=== PATIENT | male | born 2000 | race Caucasian/White ===

== ENCOUNTER 2019-09-18 14:26 | Outpatient (CLI) | payer MEDICAID ==
--- NOTE | 2019-09-18 16:12 | XRAY Report ---
Reason: CHEST TIGHTNESS Procedure Date: 09/18/2019 Accession Number: [id number] / [id number] Procedure: XRN - Chest 2 View X-Ray CPT Code: 82279 Final Report FULL RESULT: EXAM: CHEST RADIOGRAPHY EXAM DATE: 09/18/2019 02:58 PM. CLINICAL HISTORY: Chest tightness. COMPARISON: None. TECHNIQUE: 2 views. FINDINGS: Lungs/Pleura: No focal opacities evident. No pleural effusion. No pneumothorax. Normal volumes. Mediastinum: Heart and mediastinal contours are unremarkable. Other: None. IMPRESSION: Normal 2-view chest radiography. [facility]
== END 2019-09-18 14:27 | disposition home or self-care (01) ==
LOC: DI.N 14:26
PROVIDERS: ATTEND Physician Assistant
DX: R07.89 Other chest pain (principal)
CPT/HCPCS: 71046

== ENCOUNTER 2019-09-20 09:11 | Outpatient (CLI) | payer MEDICAID | END 2019-09-20 09:12 | disposition home or self-care (01) | LOC: RT 09:11 | PROVIDERS: ATTEND Physician Assistant | DX: R07.89 Other chest pain (principal) | CPT/HCPCS: 94010 ==

== ENCOUNTER 2020-04-02 19:15 | Outpatient (CLI) | payer MEDICAID, OTHER | END 2020-04-02 19:16 | disposition critical access hospital (66) | LOC: EMS 19:15 | PROVIDERS: ATTEND Surgery | DX: S01.81XA Laceration without foreign body of other part of head, initial encounter (principal); V23.4XXA Motorcycle driver injured in collision with car, pick-up truck or van in traffic accident, initial encounter; Y92.414 Local residential or business street as the place of occurrence of the external cause | CPT/HCPCS: A0425; A0429 ==

== ENCOUNTER 2020-04-02 19:35 | Emergency (ER) | payer OTHER, MEDICAID ==
[2020-04-02] MEDS ORDERED: BUFFERED LIDOCAINE 10 ML SYRINGE SUBQ STA (20:45)
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
[2020-04-02 22:42] VITALS: BP 120/72
== END 2020-04-02 22:40 | disposition home or self-care (01) ==
LOC: EDUNIT# → ED 19:35
DX: S01.112A Laceration without foreign body of left eyelid and periocular area, initial encounter (principal); V23.4XXA Motorcycle driver injured in collision with car, pick-up truck or van in traffic accident, initial encounter; Y93.I9 Activity, other involving external motion; Y92.410 Unspecified street and highway as the place of occurrence of the external cause
CPT/HCPCS: 12011; 99282; 99283

== ENCOUNTER 2020-04-07 11:21 | Emergency (ER) | payer MEDICAID, OTHER ==
[2020-04-07 11:32] VITALS: BP 135/74
--- NOTE | 2020-04-07 12:56 | ED Physician Documentation ---
PD HPI WOUND RECHECK - Stated complaint Stated Complaint: STITCHES REMOVAL - Chief complaint Chief Complaint: Wound - Histroy obtained from History obtained from: Patient - History of Present Illness Location: Face (left eyebrow) Timing - onset: How many days ago (5) Associated symptoms: Swelling (some bruising in periorbital area slowly resolving.). No: Fever, Redness Recently seen: Emergency Dept (5 days ago) Review of Systems Constitutional: denies: Fever Eyes: denies: Decreased vision, Photophobia Neurologic: denies: Altered mental status, Headache PD PAST MEDICAL HISTORY - Past Surgical History Past Surgical History: No - Allergies Allergies/Adverse Reactions: Allergies Allergy/AdvReac Type Severity Reaction Status Date / Time No Known Drug Allergies Allergy Verified 04/07/20 11:30 - Social History Does the pt smoke?: No Smoking Status: Never smoker Does the pt drink ETOH?: No Does the pt have substance abuse?: No - Immunizations Immunizations are current?: Yes - POLST Patient has POLST: No PD ED PE NORMAL - Vitals Vital signs reviewed: Yes - General General: Alert and oriented X 3, No acute distress, Well developed/nourished - HEENT HEENT: PERRL, EOMI, Other (The left periorbital area with some mild bruising and swelling of the eyelid and the infraorbital area. There is healing laceration in the left lateral eyebrow area with sutures intact and no signs of infection.) - Derm Derm: Normal color, Warm and dry Results - Vitals Vitals: Vital Signs - 24 hr 04/07/20 11:30 Temperature 36.7 C Heart Rate 82 Respiratory 15 Rate Blood Pressure 135/74 H O2 Saturation 98 Oxygen O2 Source Room air Departure - Departure Disposition: 01 Home, Self Care Clinical Impression: Visit for suture removal Condition: Stable Record reviewed to determine appropriate education?: Yes Instructions: ED Wound Check Sutr Remove No Infec Follow-Up: Carol Sanabria PA [Primary Care Provider] - Comments: Continue wound care with cleaning gently once or twice a day and a little bit of ointment until fully healed. It does look good at this time without any signs of infection. The bruising and swelling should continue to resolve.
== END 2020-04-07 13:05 | disposition home or self-care (01) ==
LOC: ED 11:21
DX: S01.112D Laceration without foreign body of left eyelid and periocular area, subsequent encounter (principal); X58.XXXD Exposure to other specified factors, subsequent encounter
CPT/HCPCS: 99281

== ENCOUNTER 2021-01-28 00:02 | Emergency (ER) | payer MEDICAID ==
--- NOTE | 2021-01-28 00:49 | ED Physician Documentation ---
History of Present Illness - Stated complaint Stated Complaint: BLOODY STOOL - Chief complaint Chief Complaint: Abd Pain - History obtained from History obtained from: Patient - Additonal information Additional information: 20-year-old man, previously healthy, without family history of IBD or autoimmune disorder presents with bright light blood per rectum intermittent over the past week and a half. Patient endorses diarrhea during this time period as well. Denies constipation or prior GI issues. Patient has been feeling cramped and bloated but denies nausea, vomiting, fevers or chills. Denies urinary symptoms. Review of Systems Ten Systems: 10 systems reviewed and negative Constitutional: denies: Fever, Chills GI: reports: Diarrhea, Bloody / black stool. denies: Abdominal Pain, Nausea, Vomiting PD PAST MEDICAL HISTORY - Past Medical History Past Medical History: Yes GI: GERD, Other Other Past Medical History: Possible IBS 2017 - Past Surgical History Past Surgical History: No - Present Medications Home Medications: Ambulatory Orders Medication Instructions Recorded Confirmed No Known Home Medications 01/28/21 01/28/21 - Allergies Allergies/Adverse Reactions: Allergies Allergy/AdvReac Type Severity Reaction Status Date / Time No Known Drug Allergies Allergy Verified 01/28/21 00:14 - Social History Does the pt smoke?: No Smoking Status: Never smoker Does the pt drink ETOH?: No Does the pt have substance abuse?: No - Immunizations Immunizations are current?: Yes - POLST Patient has POLST: No PD ED PE NORMAL - Vitals Vital signs reviewed: Yes - General General: Alert and oriented X 3, No acute distress, Well developed/nourished - HEENT HEENT: Atraumatic, PERRL, EOMI - Neck Neck: Supple, no meningeal sign - Cardiac Cardiac: RRR - Respiratory Respiratory: No respiratory distress, Clear bilaterally - Abdomen Abdomen: Soft, Non tender, Non distended - Male Male : Deferred - Rectal Rectal: Other (No hemorrhoids. Normal prostate. small amount of Bright red blood in the rectal vault. Confirmed with fecal occult blood test.) - Derm Derm: Normal color - Extremities Extremities: No deformity - Neuro Neuro: Alert and oriented X 3 - Psych Psych: Normal mood, Other (Slightly anxious affect) Results - Vitals Vitals: Vital Signs - 24 hr 01/28/21 01/28/21 00:11 01:12 Temperature 37.1 C Heart Rate 102 H Respiratory 18 Rate Blood Pressure 139/99 H 138/85 H O2 Saturation 100 Oxygen O2 Source Room air - Labs Labs: Microbiology 01/28/21 00:36 Occult Blood - Final Stool PD MEDICAL DECISION MAKING - ED course ED course: 20-year-old man, previously healthy without family history of autoimmune disorder or IBD presents with 1-1/2 weeks of intermittent diarrhea with bright red blood per rectum increasing in frequency. Patient otherwise asymptomatic and denies dizziness, shortness of breath, fevers, nausea vomiting abdominal pain or constipation. He consented to a rectal exam which was positive for feliciano blood. He was uncomfortable with the idea of getting blood work drawn s felipe he has no overt signs of anemia I am going to allow him to follow-up outpatient with a server support technician. Strict return precautions given. Departure - Departure Disposition: 01 Home, Self Care Clinical Impression: Rectal bleeding Condition: Good Instructions: ED Hematochezia Stable Comments: You were seen in the emergency department for rectal bleeding. Upon clinical exam, it does not appear that you have signs of life-threatening bleeding. You have a normal physical exam except for the blood in your bottom. Since you declined bloodwork today, you can follow-up with a server support technician in [place] for bloodwork and colonoscopy. Return to the emergency department if you develop worsening symptoms, new symptoms or other concerns. [facility] gastroenterology. [address] [facility] [phone]. Discharge Date/Time: 01/28/21 01:35
[2021-01-28 01:13] VITALS: BP 138/85
== END 2021-01-28 01:35 | disposition home or self-care (01) ==
LOC: ED 00:02
DX: K62.5 Hemorrhage of anus and rectum (principal)
CPT/HCPCS: 82270; 82274; 99282; 99283

== ENCOUNTER 2021-06-11 17:23 | Outpatient (CLI) | payer MEDICAID ==
--- NOTE | 2021-06-12 12:51 | XRAY Report ---
PROCEDURE: Abdomen 2 View X-Ray INDICATIONS: CHRONIC CONSTIPATION, BLOOD IN STOOL TECHNIQUE: 1 view of the abdomen were acquired. COMPARISON: None. FINDINGS: Surgical changes and devices: None. Bowel: No pneumoperitoneum. The bowel gas pattern is normal. Soft tissues: No masses; visualized solid organ contours appear normal in size. No suspicious abdom inal calcifications. Bones: No suspicious bony abnormalities. IMPRESSION: Normal bowel gas pattern, no free air seen. Mild colonic obstipation at the sigmoid colo n area. This also is mild at the right colon. Reviewed by: Eric Sewell MD on 06/12/2021 12:50 PM PDT Approved by: Eric Sewell MD on 06/12/2021 12:50 PM PDT Station ID: [id number]
== END 2021-06-11 17:24 | disposition home or self-care (01) ==
LOC: DI.N 17:23
PROVIDERS: ATTEND Family Medicine
DX: K59.09 Other constipation (principal); K92.1 Melena

== ENCOUNTER 2022-01-12 11:26 | Outpatient (CLI) | payer MEDICAID ==
--- NOTE | 2022-01-12 15:41 | XRAY Report ---
PROCEDURE: Lumbar Spine 2 View INDICATIONS: THORACIC BACK PX TECHNIQUE: 2 views of the lumbar spine were acquired. COMPARISON: None. FINDINGS: Bones: 2 [id number] vertebrae are present. There is normal bony alignment. No vertebral body compression fractures. No suspicious bony lesions. Soft tissues: Overlying bowel gas pattern is normal. No suspicious soft tissue calcifications. IMPRESSION: No lumbar spine compression fracture or spondylolisthesis. Reviewed by: Momo Ansari MD on 01/12/2022 3:40 PM PST Approved by: Momo Ansari MD on 01/12/2022 3:40 PM PST Station ID: [id number]
--- NOTE | 2022-01-12 15:42 | XRAY Report ---
PROCEDURE: Thoracic Spine 2 View INDICATIONS: THORACIC BACK PX TECHNIQUE: 3 views of the thoracic spine were acquired. COMPARISON: None. FINDINGS: Bones: No fractures or dislocations. No suspicious bony lesions. 12 pairs of ribs are noted, and a ppear intact where visualized. Soft tissues: No paravertebral stripe thickening. IMPRESSION: No fracture or dislocation in thoracic spine. No finding to explain patient's symptoms. Reviewed by: Momo Ansari MD on 01/12/2022 3:40 PM PST Approved by: Momo Ansari MD on 01/12/2022 3:40 PM PST Station ID: [id number]
== END 2022-01-12 11:27 | disposition home or self-care (01) ==
LOC: DI.N 11:26
PROVIDERS: ATTEND Nurse Practitioner
DX: M54.6 Pain in thoracic spine (principal)

== ENCOUNTER 2022-12-23 17:21 | Outpatient (CLI) | payer MEDICAID ==
[2022-12-23 20:29] LABS: BASOPHILS # (AUTO) 0.1 10^3/uL (0.0-0.1); BASOPHILS % (AUTO) 0.8 %; EOSINOPHILS # (AUTO) 0.4 10^3/uL (0.0-0.7); EOSINOPHILS % (AUTO) 5.7 %; HCT - HEMATOCRIT 32.8 % (42.0-52.0); LYMPHOCYTES # (AUTO) 1.8 10^3/uL (1.5-3.5); LYMPHOCYTES % (AUTO) 23.6 %; MEAN CORPUSCULAR HEMOGLOBIN 19.7 pg (27.0-31.0); MEAN CORPUSCULAR HGB CONC 27.4 g/dL (32.0-36.0); MEAN CORPUSCULAR VOLUME 71.9 fL (80.0-94.0); MEAN PLATELET VOLUME 10.2 fL (7.4-11.4); MONOCYTES # (AUTO) 0.6 10^3/uL (0.0-1.0); MONOCYTES % (AUTO) 7.7 %; NEUTROPHILS # (AUTO) 4.7 10^3/uL (1.5-6.6); NEUTROPHILS % (AUTO) 61.9 %; PLT - PLATELET COUNT 404 10^3/uL (130-450); RED BLOOD COUNT 4.56 10^6/uL (4.70-6.10); WHITE BLOOD COUNT 7.6 x10^3/uL (4.8-10.8)
[2022-12-23 20:52] LABS: % IRON SATURATION 3 % (20-50); ALBUMIN 4.2 g/dL (3.2-5.5); ALKALINE PHOSPHATASE 119 IU/L (42-121); ALT ALANINE AMINOTRANSFERASE 12 IU/L (10-60); AST ASPARTATE AMINOTRANSFERASE 19 IU/L (10-42); BILIRUBIN,TOTAL 0.5 mg/dL (0.2-1.0); BUN - BLOOD UREA NITROGEN 15 mg/dL (6-20); CARBON DIOXIDE - CO2 26 mmol/L (21-32); CHLORIDE 100 mmol/L (101-111); CREATININE 0.9 mg/dL (0.6-1.2); GFR - MDRD 104 (>89); GLUCOSE 117 mg/dL (70-100); IRON 16 ug/dL (45-182); POTASSIUM 3.9 mmol/L (3.5-5.0); SODIUM 139 mmol/L (135-145); TOTAL IRON BINDING CAPACITY 538 ug/dL (250-450); TOTAL PROTEIN 8.3 g/dL (6.7-8.2); TRANSFERRIN 384 mg/dL (180-329)
[2022-12-23 20:53] LABS: CRP - C-REACTIVE PROTEIN < 1.0 mg/dL (0-1.0); PLATELET ESTIMATE, MANUAL NORMAL (130-450,000) (NORMAL); PLATELET MORPHOLOGY NORMAL APPEARANCE (NORMAL); SLIDE REVIEW? Indicated
[2022-12-23 21:00] LABS: THYROID STIMULATING HORMONE 1.24 uIU/mL (0.34-5.60)
[2022-12-23 21:11] LABS: FOLATE 20.68 ng/mL (5.90 - >24.8)
== END 2022-12-23 17:22 | disposition home or self-care (01) ==
LOC: LAB.N 17:21
PROVIDERS: ATTEND Nurse Practitioner
DX: R53.83 Other fatigue (principal)
CPT/HCPCS: 36415; 80050; 82607; 82728; 82746; 83540; 84466; 85651; 86140

== ENCOUNTER 2022-12-25 04:05 | Emergency (ER) | payer MEDICAID ==
[2022-12-25 04:20] VITALS: BP 128/69
--- NOTE | 2022-12-25 04:30 | ED Physician Documentation ---
PD HPI OPHTHO - Stated complaint Stated Complaint: CORNEAL ULCER - Chief complaint Chief Complaint: Heent - History obtained from History obtained from: Patient - Additional information Additional information: HPI from patient. 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 Denies injury, denies h/o similar symptoms. No inciting event. He does not wear contact lenses nor glasses. Review of Systems Eyes: reports: Irritation. denies: Loss of vision, Decreased vision, Photophobia, Discharge PD PAST MEDICAL HISTORY - Past Medical History Past Medical History: No GI: GERD, Other - Past Surgical History Past Surgical History: No - Present Medications Home Medications: Ambulatory Orders Medication Instructions Recorded Confirmed Mesalamine [Lialda] 1.2 g PO DAILY 12/25/22 12/25/22 - Allergies Allergies/Adverse Reactions: Allergies Allergy/AdvReac Type Severity Reaction Status Date / Time No Known Drug Allergies Allergy Verified 12/25/22 04:12 - Social History Does the pt smoke?: No Smoking Status: Never smoker Does the pt drink ETOH?: No Does the pt have substance abuse?: No - Immunizations Immunizations are current?: Yes - POLST Patient has POLST: No PD ED PE NORMAL - Vitals Vital signs reviewed: Yes - General General: Alert and oriented X 3, No acute distress, Well developed/nourished PD ED PE EXPANDED - HEENT HEENT Visual: 1 - abrasion (punctate area of fluorescein uptake) - Eyes Eyes: PERRL, EOMI, Normal eyelids, No eyelid FB (everted), Nl conjunctiva/sclera. No: Conj/sclera FB, Corneal FB Results - Vitals Vitals: Oxygen O2 Source Room air PD Medical Decision Making - ED course Complexity details: considered differential, d/w patient Departure - Departure Disposition: 01 Home, Self Care Clinical Impression: Corneal abrasion Condition: Good Instructions: ED Eye Injury Corneal Abrasion Follow-Up: Frida Conway ARNP [Primary Care Provider] - (4-5 days if symptoms have not resolved ) Comments: I did not see any evidence of a foreign body on the eye exam. However, there is a small but definite corneal abrasion of the right cornea. It is exceedingly likely this will heal without any complications or need for follow-up. You have been provided with antibiotic drops which should be used as follows: 1 drop instilled in the right eye 3 times a day for 5 days. This is being given to to prevent infection. Certainly if your symptoms worsen or if you develop new/concerning signs/symptoms (such as vision changes, worsening pain), you can return to the emergency department for reevaluation. Otherwise, follow-up with your primary care provider in 4 to 5 days if you are still having any symptoms. Discharge Date/Time: 12/25/22 05:10
[2022-12-25] MEDS ORDERED: PROPARACAINE 0.5% OPHTH DROPS 15 ML RIGHTEYE STA (04:32)
[2022-12-25] MEDS ORDERED: POLYMYXIN B/TRIMETH OPHTH DROPS RIGHTEYE STA (04:57)
== END 2022-12-25 05:10 | disposition home or self-care (01) ==
LOC: ED 04:05
DX: S05.01XA Injury of conjunctiva and corneal abrasion without foreign body, right eye, initial encounter (principal); X58.XXXA Exposure to other specified factors, initial encounter; Y93.89 Activity, other specified
CPT/HCPCS: 99282; 99283; A9270; J3490

== ENCOUNTER 2022-12-29 02:15 | Emergency (ER) | payer MEDICAID ==
[2022-12-29 02:34] VITALS: BP 140/78
--- NOTE | 2022-12-29 03:27 | ED Physician Documentation ---
History of Present Illness - Stated complaint Stated Complaint: LT EYE PX - Chief complaint Chief Complaint: Heent - Additonal information Additional information: Patient 22-year-old male presenting to the emergency department with concern for ulceration to his left eye. States was here a few days ago and diagnosed with ulceration to the right eye and started on antibiotic drops. Woke today and noticed some enlarged and red blood vessels to his left eye. Denies pain or visual disturbance to the left eye. Denies contact lens use. PD PAST MEDICAL HISTORY - Past Medical History GI: GERD, Other - Past Surgical History Past Surgical History: No - Present Medications Home Medications: Ambulatory Orders Medication Instructions Recorded Confirmed Mesalamine [Lialda] 1.2 g PO DAILY 12/25/22 12/29/22 - Allergies Allergies/Adverse Reactions: Allergies Allergy/AdvReac Type Severity Reaction Status Date / Time No Known Drug Allergies Allergy Verified 12/29/22 02:27 - Social History Does the pt smoke?: No Smoking Status: Never smoker Does the pt drink ETOH?: No Does the pt have substance abuse?: No - Immunizations Immunizations are current?: Yes - POLST Patient has POLST: No PD ED PE NORMAL - Vitals Vital signs reviewed: Yes - General General: Alert and oriented X 3, No acute distress - HEENT HEENT: Atraumatic, PERRL, EOMI, Other (Subconjunctival hemorrhage to the medial aspect of the left eye) Results - Vitals Vitals: Vital Signs - 24 hr 12/29/22 02:27 Temperature 37.1 C Heart Rate 89 Respiratory 18 Rate Blood Pressure 140/78 H O2 Saturation 100 Oxygen O2 Source Room air PD Medical Decision Making - ED course Complexity details: considered differential, d/w patient ED course: Patient presents with subconjunctival hemorrhage to the left eye without visual disturbance. No trauma to the eye reported. Discussed nature of this as well as its management and expected course including its self resolving and limited nature. Will discharge for follow-up with primary care as needed. Departure - Departure Disposition: 01 Home, Self Care Clinical Impression: Bloodshot eyes Instructions: ED Eye Injury Subconj Hemorrhage Comments: Thank you for allowing us to care for you today would be health. Today in the emergency department you were diagnosed with bloodshot eyes, also known as subconjunctival hemorrhages. These are benign findings that can often happen in settings of cold weather or aggressive eye rubbing. These are benign and will resolve spontaneously over the course of the next few days. If you have new or worsening symptoms such as pain or decreased vision please return.
== END 2022-12-29 03:31 | disposition home or self-care (01) ==
LOC: ED 02:15
DX: H11.32 Conjunctival hemorrhage, left eye (principal)
CPT/HCPCS: 99281; 99282

== ENCOUNTER 2023-04-07 13:02 | Outpatient (CLI) | payer MEDICAID ==
--- NOTE | 2023-04-07 15:10 | XRAY Report ---
PROCEDURE: Lumbar Spine 2 View INDICATIONS: LUMBAR RADICULOPATHY LEFT TECHNIQUE: 3 views of the lumbar spine were acquired. COMPARISON: None. FINDINGS: Bones: 5 [id number] vertebrae are present. There is normal bony alignment. No vertebral body compression fractures. No suspicious bony lesions. Soft tissues: Overlying bowel gas pattern is normal. No suspicious soft tissue calcifications. IMPRESSION: Unremarkable lumbar spine plain films Comment: Lumbar spine MRI may be helpful. Reviewed by: Dave Whitmore MD on 04/07/2023 3:09 PM PDT Approved by: Dave Whitmore MD on 04/07/2023 3:09 PM PDT Station ID: [id number]
== END 2023-04-07 13:03 | disposition home or self-care (01) ==
LOC: DI.N 13:02
PROVIDERS: ATTEND Family Medicine
DX: M54.16 Radiculopathy, lumbar region (principal)

== ENCOUNTER 2023-12-14 14:45 | Outpatient (CLI) | payer MEDICAID | END 2023-12-14 14:46 | disposition home or self-care (01) | LOC: LAB 14:45 | PROVIDERS: ATTEND Physician Assistant | DX: K51.00 Ulcerative (chronic) pancolitis without complications (principal); Z79.899 Other long term (current) drug therapy | CPT/HCPCS: 81599; 86704; 86706; 87340 ==